=== PATIENT | male | born 1960 | race African-American/Black ===

== ENCOUNTER 2023-02-05 20:58 | Emergency (ER) | payer OTHER ==
[~2023-02-05] VITALS: Ht 165.1 cm; Wt 65.8 kg
--- NOTE | 2023-02-05 21:16 | NUR ---
[id number] FROM [facility], CC [facility]F HITTING BACK OF HEAD. - LOC, -N/V S/P CVA LEFT HEMIPARESIS
[2023-02-05] MEDS ORDERED: IBUPROFEN 400 MG TABLET PO ONE (21:30)
[2023-02-05] MEDS ORDERED: IBUPROFEN 400 MG TABLET ONE (21:33)
--- NOTE | 2023-02-05 23:30 | NUR ---
[facility] CALLED FOR BLS GOING BACK TO [facility] PER [facility] ETA LESS THAN 30 MIN
--- NOTE | 2023-02-05 23:59 | NUR ---
REPORT GIVEN TO CRISTOPHER FROM [facility] FOR [facility]; CORNELIUS AT PT'S BEDSIDE FOR DC
[2023-02-06 00:51] VITALS: BP 165/60
== END 2023-02-06 00:52 ==
LOC: ER 21:06
DX: S39.012A Strain of muscle, fascia and tendon of lower back, initial encounter (principal); S00.03XA Contusion of scalp, initial encounter; M47.816 Spondylosis without myelopathy or radiculopathy, lumbar region; I10 Essential (primary) hypertension; F20.9 Schizophrenia, unspecified; E11.40 Type 2 diabetes mellitus with diabetic neuropathy, unspecified; Z88.1 Allergy status to other antibiotic agents; W01.0XXA Fall on same level from slipping, tripping and stumbling without subsequent striking against object, initial encounter; Y93.89 Activity, other specified; Y92.89 Other specified places as the place of occurrence of the external cause; Y99.8 Other external cause status
CPT/HCPCS: 70450-TC; 72131-TC